=== PATIENT | male | born 1995 | race Caucasian/White ===

== ENCOUNTER 2019-10-03 03:03 | Emergency (ER) | payer BC ==
[~2019-10-03] VITALS: Ht 190.5 cm; Wt 86.2 kg
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
[2019-10-03 04:15] VITALS: BP 129/84
[2019-10-03] MEDS ORDERED: HYDROCODON-ACE1 EA15 ORAL (04:23)
[2019-10-03] MEDS ORDERED: IBUPROFEN600 MG ORAL (04:23)
--- NOTE | 2019-10-03 04:25 | NUR ---
ER DISCHARGE NOTE: Patient is cleared to be discharged per ERMD, pt is aox4, on room air, with stable vital signs. pt was given dc and prescription instructions, pt was able to verbalize understanding, pt id band removed without complications. pt is able to ambulate with steady gait. pt took all belongings. pt given ulnar gutter splint and copies of x-rays for follow up, also referrals for physicians and ortho clinics, [place], sat and explained in details importance of f/u and what to do along with written materials to pt and his friend.
--- NOTE | 2019-10-03 12:05 | Diagnostic Imaging Report ---
INDICATION: Hand and finger pain, trauma TECHNIQUE: XRAY Hand Complete R, XRAY Fingers 2-3v R, XRAY Fingers 2-3v R Multiple views of the right hand and fingers were obtained COMPARISON: None FINDINGS: There are acute, mildly displaced fractures of the fifth and fourth distal phalangeal bases, with likely intra-articular extension. Cortical irregularity at the base of the third distal phalanx raises possibility of additional nondisplaced fracture. There is associated soft tissue swelling. Remaining joints are unremarkable. IMPRESSION: Mildly displaced acute fractures of the fourth and fifth distal phalangeal bases, likely intra-articular, with possible third distal phalangeal base nondisplaced fracture.
== END 2019-10-03 04:30 | disposition home or self-care (01) ==
LOC: EMR 03:26
DX: S62.609A Fracture of unspecified phalanx of unspecified finger, initial encounter for closed fracture (principal); W22.09XA Striking against other stationary object, initial encounter; Y92.9 Unspecified place or not applicable
CPT/HCPCS: 29125; 99284